=== PATIENT | female | born 1980 | race Hispanic/Latino ===

== ENCOUNTER 2017-08-23 11:56 | Emergency (ER) | payer BC, OTHER ==
[2017-08-23 12:23] LABS: APPEARANCE,URINE Clear (CLEAR); BILIRUBIN,URINE Negative (NEGATIVE); COLOR,URINE Yellow (YELLOW); GLUCOSE, URINE (UA) Negative (NEGATIVE); KETONES,URINE Negative (NEGATIVE); LEUKOCYTE ESTERASE ,URINE Negative (NEGATIVE); NITRATE,URINE Negative (NEGATIVE); OCCULT BLOOD,URINE Trace (NEGATIVE); PROTEIN,URINE Negative (NEGATIVE); UROBILINOGEN,URINE 0.2 mg/dL (0.2-1.0)
[2017-08-23 12:33] LABS: HCG,QUAL RESULT NEGATIVE (NEGATIVE)
[2017-08-23 12:35] LABS: BACTERIA,URINE Few /HPF (None Seen); RBC,URINE 0-1 /HPF (0-1); WBC,URINE 0-1 /HPF (0-1)
[2017-08-23 13:03] LABS: BASOPHILS % (AUTO) 0.4 % (0.0-5.0); EOSINOPHILS % (AUTO) 0.8 % (0.0-8.0); HEMATOCRIT 39.7 % (36-48); LYMPHOCYTES % (AUTO) 28.6 % (21.0-51.0); MEAN CORPUSCULAR HEMOGLOBIN 29.9 pg (27.0-33.0); MEAN CORPUSCULAR HGB CONC 34.3 g/dL (32.0-36.0); MEAN CORPUSCULAR VOLUME 87.3 fL (79-99); MONOCYTES % (AUTO) 11.4 % (3.0-13.0); NEUTROPHILS % (AUTO) 58.8 % (40.0-77.0); PLATELET COUNT (AUTO) 285 K/uL (130-400); RED BLOOD CELL COUNT(AUTO) 4.55 MIL/uL (4.00-5.50); RED CELL DISTRIBUTION WIDTH 14.2 % (11.0-15.5); WHITE BLOOD COUNT (AUTO) 10.8 K/uL (4.8-10.8)
[2017-08-23 13:22] LABS: CREATININE 0.6 mg/dL (0.5-1.5); POTASSIUM 4.1 mmol/L (3.5-5.1)
[2017-08-23 13:26] LABS: ALBUMIN 3.5 g/dL (3.5-5.0); BILIRUBIN,TOTAL 0.4 mg/dL (0.2-1.0); TOTAL PROTEIN, SERUM 7.8 g/dL (6.0-8.3)
[2017-08-23] MEDS ORDERED: KETOROLAC TROMETHAMINE 30MG/ML ONE (14:14)
[2017-08-23] MEDS ORDERED: IOPAMIDOL-370 75 ML VIAL IV ONE (15:16)
[2017-08-23] MEDS ORDERED: MAGNESIUM CITRATE 296 ML SOLUTION ONE (15:54)
== END 2017-08-23 16:02 | disposition home or self-care (01) ==
LOC: EDH 11:56
DX: K59.00 Constipation, unspecified (principal); R50.81 Fever presenting with conditions classified elsewhere; I10 Essential (primary) hypertension; E07.9 Disorder of thyroid, unspecified
CPT/HCPCS: 36415; 74177; 76705; 76857; 80053; 81001; 81025; 85025; 96374; 99285; J1885; Q9967

== ENCOUNTER 2020-05-29 21:38 | Inpatient (IN) | payer BC ==
[~2020-05-29] VITALS: Ht 167.6 cm; Wt 96.2 kg
[2020-05-29] MEDS ORDERED: EPHEDRINE SULFATE 50 MG/ML AMPULE IVP PRN (21:45)
[2020-05-29] MEDS ORDERED: MEPERIDINE-PF 50 MG/ML SYG IVP PRN (21:45)
[2020-05-29] MEDS ORDERED: PROMETHAZINE HCL 25 MG/ML 1ML AMPULE IM PRN (21:45)
[2020-05-29] MEDS ORDERED: ROPIVACAINE 0.2% 100ML VIAL 100 ML EP SCH (21:45)
[2020-05-29] MEDS ORDERED: LACTATED RINGERS 500 ML 500 ML IV PRN (21:45)
[2020-05-29] MEDS ORDERED: NALOXONE HCL 0.4 MG/1 ML ML IV PRN (21:45)
[2020-05-29] MEDS: LACTATED RINGERS 1000ML 1,000 ML IV PRN (22:24)
[2020-05-29] MEDS ORDERED: AMPICILLIN 2GM+NS 100ML 100 ML IV SCH (22:30)
[2020-05-29 22:33] LABS: HEMATOCRIT 34.4 % (36-48); MEAN CORPUSCULAR HEMOGLOBIN 28.7 pg (27.0-33.0); MEAN CORPUSCULAR HGB CONC 32.8 g/dL (32.0-36.0); MEAN CORPUSCULAR VOLUME 87.3 fL (79-99); RED BLOOD CELL COUNT(AUTO) 3.94 MIL/uL (4.00-5.50); RED CELL DISTRIBUTION WIDTH 15.3 % (11.0-15.5); WHITE BLOOD COUNT (AUTO) 13.2 K/uL (4.8-10.8)
[2020-05-29 22:35] LABS: APPEARANCE,URINE Clear (CLEAR); BILIRUBIN,URINE Negative (NEGATIVE); COLOR,URINE Yellow (YELLOW); GLUCOSE, URINE (UA) Negative (NEGATIVE); KETONES,URINE Negative (NEGATIVE); LEUKOCYTE ESTERASE ,URINE Trace (NEGATIVE); NITRATE,URINE Negative (NEGATIVE); OCCULT BLOOD,URINE Large (NEGATIVE); PH,URINE 6.5 (5.0-8.0); PROTEIN,URINE Negative (NEGATIVE); UROBILINOGEN,URINE 0.2 mg/dL (0.2-1.0)
[2020-05-29 22:43] LABS: AMPHET/METH SCREEN,URINE NEGATIVE (NEGATIVE); BARBITURATE SCREEN, URINE NEGATIVE (NEGATIVE); BENZODIAZEPINES SCREEN,URINE NEGATIVE (NEGATIVE); CANNABINOID SCREEN,URINE NEGATIVE (NEGATIVE); COCAINE SCREEN,URINE NEGATIVE (NEGATIVE); OPIATE SCREEN,URINE NEGATIVE (NEGATIVE); PHENCYCLIDINE SCREEN,URINE NEGATIVE (NEGATIVE)
[2020-05-29 22:48] LABS: BACTERIA,URINE Rare /HPF (None Seen); SQUAMOUS EPITHELIAL CELL,UR Moderate /HPF (0-2); WBC,URINE 0-1 /HPF (0-1)
[2020-05-30] MEDS: LACTATED RINGERS 1000ML 1,000 ML IV PRN (02:17)
[2020-05-30] MEDS: AMPICILLIN 1GM+NS 50ML 50 ML IV SCH ×4 (02:17→22:30)
[2020-05-30] MEDS ORDERED: OXYTOCIN-LR 20 UNITS/1000 ML 1,000 ML IV SCH ×3 (05:00→11:45)
[2020-05-30] MEDS ORDERED: DIPH,PERTUSS(ACELL),TET VAC/PF 0.5 ML VIAL IM PRN (11:45)
[2020-05-30] MEDS ORDERED: ACETAMINOPHEN 325 MG TAB PO PRN (11:45)
[2020-05-30] MEDS ORDERED: WITCH HAZEL 1 PAD TP PRN (11:45)
[2020-05-30] MEDS ORDERED: BENZOCAINE/LANOLIN/ALOE VERA 60 ML AEROSOL TP PRN (11:45)
[2020-05-30] MEDS ORDERED: MEASLES/MUMPS/RUBELLA VACCINE, LIVE 0.5 ML/VIAL SQ PRN (11:45)
[2020-05-30] MEDS ORDERED: ACETAMINOPHEN-CODEINE 300/30MG TAB PO PRN (11:45)
[2020-05-30] MEDS ORDERED: LANOLIN 30GM OINTMENT TP PRN (11:45)
[2020-05-30 14:01] VITALS: BP 120/76
[2020-05-30] MEDS: IBUPROFEN 600 MG TABLET PO PRN (14:49)
[2020-05-30 16:49] VITALS: BP 110/71
[2020-05-30] MEDS ORDERED: PREN1TAB63 PO (18:35)
[2020-05-30] MEDS ORDERED: LEVO137T24 PO (18:35)
[2020-05-30] MEDS ORDERED: LEVO125T95 PO (18:35)
[2020-05-30] MEDS ORDERED: CALC-877 PO (18:37)
[2020-05-30 19:36] VITALS: BP 116/79
[2020-05-30] MEDS: DOCUSATE SODIUM 100 MG CAP PO SCH (21:16)
[2020-05-30 23:34] VITALS: BP 109/81
[2020-05-31] MEDS: IBUPROFEN 600 MG TABLET PO PRN ×3 (02:20→16:30)
[2020-05-31] MEDS: AMPICILLIN 1GM+NS 50ML 50 ML IV SCH ×3 (02:30→05:43)
[2020-05-31 03:53] VITALS: BP 123/88
[2020-05-31 05:41] LABS: HEMATOCRIT 31.9 % (36-48); MEAN CORPUSCULAR HEMOGLOBIN 28.5 pg (27.0-33.0); MEAN CORPUSCULAR HGB CONC 32.3 g/dL (32.0-36.0); MEAN CORPUSCULAR VOLUME 88.1 fL (79-99); RED BLOOD CELL COUNT(AUTO) 3.62 MIL/uL (4.00-5.50); RED CELL DISTRIBUTION WIDTH 15.4 % (11.0-15.5); WHITE BLOOD COUNT (AUTO) 12.6 K/uL (4.8-10.8)
[2020-05-31 07:15] VITALS: BP 119/81
[2020-05-31] MEDS: DOCUSATE SODIUM 100 MG CAP PO SCH (10:00)
[2020-05-31 10:15] LABS: HEPATITIS Bs ANTIGEN SCREEN P Negative (Negative)
[2020-05-31 11:33] VITALS: BP 116/86
[2020-05-31] MEDS ORDERED: DIPHENHYDRAMINE HCL 25 MG CAPSULE PO PRN (16:00)
[2020-05-31] MEDS ORDERED: PHARMACY COMMUNICATION MISC SCH (16:00)
[2020-05-31 16:18] VITALS: BP 138/93
[2020-05-31] MEDS ORDERED: DIPHENHYDRAMINE HCL 2% 30 GM CREAM.GM. TP PRN (16:30)
== END 2020-05-31 16:40 | disposition home or self-care (01) | DRG 807 ==
LOC: UNDOADMIN 21:38 → LDH 21:38 → WSH 05-30 13:48 → UNDODISIN 05-31 16:40 → PREOBSVTOIN 06-15 21:37
PROVIDERS: ADMIT Obstetrics & Gynecology; ATTEND Obstetrics & Gynecology
PROC: 10E0XZZ Delivery of Products of Conception, External Approach (ICD-10-PCS; principal; 2020-05-30)
PROC: 0HQ9XZZ Repair Perineum Skin, External Approach (ICD-10-PCS; 2020-05-30)
PROC: 3E0234Z Introduction of Serum, Toxoid and Vaccine into Muscle, Percutaneous Approach (ICD-10-PCS; 2020-05-30)
PROC: 3E0134Z Introduction of Serum, Toxoid and Vaccine into Subcutaneous Tissue, Percutaneous Approach (ICD-10-PCS; 2020-05-30)
PROC: 3E0R3BZ Introduction of Anesthetic Agent into Spinal Canal, Percutaneous Approach (ICD-10-PCS; 2020-05-30)
PROC: 00HU33Z Insertion of Infusion Device into Spinal Canal, Percutaneous Approach (ICD-10-PCS; 2020-05-30)
PROC: 10907ZC Drainage of Amniotic Fluid, Therapeutic from Products of Conception, Via Natural or Artificial Opening (ICD-10-PCS; 2020-05-30)
PROC: 3E033VJ Introduction of Other Hormone into Peripheral Vein, Percutaneous Approach (ICD-10-PCS; 2020-05-30)
DX: O99.284 Endocrine, nutritional and metabolic diseases complicating childbirth (principal); Z37.0 Single live birth; O99.824 Streptococcus B carrier state complicating childbirth; O99.12 Other diseases of the blood and blood-forming organs and certain disorders involving the immune mechanism complicating childbirth; O69.1XX0 Labor and delivery complicated by cord around neck, with compression, not applicable or unspecified; M35.00 Sjogren syndrome, unspecified; Z23 Encounter for immunization; O70.0 First degree perineal laceration during delivery; Z3A.37 37 weeks gestation of pregnancy
CPT/HCPCS: 36415; 80305; 81001; 85027; 86592; 86701; 86850; 86900; 86901; 87340; 87390; G0378; J0290; J2590; J2795; J3490; Q0163

== ENCOUNTER → 2022-05-31 | Outpatient (CLI) | payer BC ==
[~2022-05-31] MED LIST: CALC-877 PO; LEVO125T95 PO; LEVO137T24 PO; PREN1TAB63 PO
== END | disposition home or self-care (01) ==
LOC: RAH 10:57
PROVIDERS: ATTEND Internal Medicine
DX: E04.2 Nontoxic multinodular goiter (principal)
CPT/HCPCS: 76536

== ENCOUNTER 2022-07-07 07:45 | Day surgery (SDC) | payer BC ==
[2022-07-01 13:05] LABS: HEMATOCRIT 41.2 % (36-48); MEAN CORPUSCULAR HEMOGLOBIN 28.7 pg (27.0-33.0); MEAN CORPUSCULAR HGB CONC 32.5 g/dL (32.0-36.0); MEAN CORPUSCULAR VOLUME 88.2 fL (79-99); PLATELET COUNT (AUTO) 345 K/uL (130-400); RED BLOOD CELL COUNT(AUTO) 4.67 MIL/uL (4.00-5.50); RED CELL DISTRIBUTION WIDTH 14.6 % (11.0-15.5); WHITE BLOOD COUNT (AUTO) 8.1 K/uL (4.8-10.8)
[2022-07-01 13:44] LABS: LYMPHOCYTES % (MANUAL) 37 % (22-44); MAN.DIFF COMMENT-IMPRESSION MANUAL DIFFERENTIAL; MONOCYTES % (MANUAL) 6 % (2-9); PLATELET MORPHOLOGY COMMENT ADEQUATE; REACTIVE LYMPHOCYTES 3 % (0-0); SEGMENTED NEUTROPHILS % 54 % (40-70)
[~2022-07-07] VITALS: Ht 167.6 cm; Wt 86.6 kg
[2022-07-07] VITALS (18 sets, daily range): BP systolic 96–126; BP diastolic 62–84
[~2022-07-07 07:45] MED LIST changes: -CALC-877 PO; +LEVO112C4 PO; -LEVO125T95 PO; -LEVO137T24 PO; -PREN1TAB63 PO; +[UNRECOGNIZED DRUG - OTHER] PO; +vitamin b12 PO; +vitamin d PO
[2022-07-07] MEDS ORDERED: LACTATED RINGERS 1000ML 1,000 ML IV ONE (08:41)
[2022-07-07] MEDS ORDERED: LIDOCAINE HCL MPF 1% 5ML VIAL ONE (10:17)
[2022-07-07] MEDS ORDERED: DEXAMETHASONE SOD PHOSPHATE 4 MG/ML 1ML VIAL ONE (10:17)
[2022-07-07] MEDS ORDERED: MIDAZOLAM HCL 1 MG/ML 2ML VIAL ONE (10:18)
[2022-07-07] MEDS ORDERED: ONDANSETRON 4MG INJ ONE (10:18)
[2022-07-07] MEDS ORDERED: FENTANYL CITRATE PF 50 MCG/1 ML 2ML VIAL ONE (10:18)
[2022-07-07] MEDS ORDERED: PROPOFOL 10 MG/ML 20ML VIAL IV ONE (10:18)
[2022-07-07] MEDS ORDERED: KETOROLAC 30MG VIAL (30MG/ML) ONE (12:04)
[2022-07-07] MEDS ORDERED: KETOROLAC 15MG/ML VIAL (15MG/ML) ONE (12:10)
[2022-07-07] MEDS ORDERED: SILVER NITRATE APPLICATOR 1 SWAB TP SCH (13:00)
== END 2022-07-07 14:05 | disposition home or self-care (01) ==
LOC: DAH 07:45
PROVIDERS: ATTEND Obstetrics & Gynecology
DX: N93.9 Abnormal uterine and vaginal bleeding, unspecified (principal); Z20.822 Contact with and (suspected) exposure to COVID-19; R87.618 Other abnormal cytological findings on specimens from cervix uteri; N93.0 Postcoital and contact bleeding; N88.9 Noninflammatory disorder of cervix uteri, unspecified; N72 Inflammatory disease of cervix uteri; I10 Essential (primary) hypertension; E03.9 Hypothyroidism, unspecified; E78.00 Pure hypercholesterolemia, unspecified; Z82.49 Family history of ischemic heart disease and other diseases of the circulatory system; Z79.899 Other long term (current) drug therapy
CPT/HCPCS: 84703; 85025; 87426; 36415; 58558; 57505; 81025; A6260; J1100; A4663; J7030; A4351; J7120; J3010; J2250; J2704; J2405; J1885 ×2; J3490; A4215; A4223; A4222; A4221